=== PATIENT | male | born 1935 | race Caucasian/White ===

== ENCOUNTER 2019-06-09 20:48 | Inpatient (IN) | payer OTHER ==
[~2019-06-09] VITALS: Ht 172.7 cm; Wt 87.7 kg
--- NOTE | 2019-06-09 21:00 | NUR ---
EKG IN PROGRESS IN TRIAGE BY ERT SANTOS
[2019-06-09 22:16] LABS: BASOPHIL % 0.3 % (0-2); PLATELET COUNT 220 x10^3mcL (130-400); RED CELL DISTRIBUTION WIDTH 15.1 % (11.5-14.5)
[2019-06-09 22:22] LABS: CALCIUM 9.1 mg/dL (8.5-10.1); CHLORIDE SERUM 105 mmol/L (98-107); GLUCOSE SERUM 133 mg/dL (74-106); POTASSIUM SERUM 3.9 mmol/L (3.5-5.1); SODIUM SERUM 143 mmol/L (136-145)
[2019-06-09 22:27] LABS: ALBUMIN 3.5 g/dL (3.4-5.0); ALKALINE PHOSPHATASE 96 U/L (46-116); ALT/SGPT 29 U/L (16-63); AST/SGOT 15 U/L (15-37); BILIRUBIN TOTAL 0.62 mg/dL (0.20-1.00); TOTAL PROTEIN, SERUM 7.5 g/dL (6.4-8.2)
[2019-06-09 22:40] LABS: UA SPECIFIC GRAVITY 1.025 (1.005-1.035); microscopic required? YES; urine erythrocyte NEGATIVE (NEGATIVE)
--- NOTE | 2019-06-09 23:37 | NUR ---
GAVE REPORT TO BERNICE AT [id number] ON TELE FLOOR
--- NOTE | 2019-06-10 00:08 | NUR ---
PT RECEIVED FROM ED VIA GURNEY ACCOMPANIED BY NURSE AND TECH. PT A/O X4, ABLE TO MAKE NEEDS KNOWN. TELE #26, AFIB, PT DENIES ANY CP/PRESSURE. PULSES PALPABLE, NO EDEMA PRESENT. BREATHING IS EVEN AND UNLABORED ON RA, PT DENIES SOB, NO RESP DISTRESS NOTED, NONPRODUCTIVE COUGH. ABD SOFT AND ROUND, SDENIES N/V. VOIDS FREELY, BRP. AMBULATORY WITH STEADY GAIT. SKIN IS WARM AND DRY, INTACT. PT DENIES HAVING ANY PAIN AT THIS TIME. LEVAQUIN IV ONGOING TO RFA, SITE WNL. ORIENTED PT TO ROOM AND CALL LIGHT. NO ACUTE DISTRESS NOTED. BED IN LOWEST SETTING, SIDE RAILS UP X2, CALLL IGHT WITHIN REACH. WILL CONT TO MONITOR.
--- NOTE | 2019-06-10 00:10 | NUR ---
PT WAS RECEIVED BY PRIMARY NURSE BERNICE FROM ED. PT SEEN LYING IN BED, AAOX4. CAME IN DUE TO COUGH X1 WEEK. AAOX4. DENIES HEADACHE/DIZZINESS. ABLE TO FOLLOW COMMANDS. NO SOB NOTED, MILD CRACKLES NOTED ON AUSCULTATION. O2 SAT=98%, RA. STATED THAT HE HAS NON-PRODUCTIVE COUGH. DENIES CHEST PAIN/PRESSURE, AFIB ON THE MONITOR, HR AT 89. DENIES ABDOMINAL DISCOMFORT. VOIDS. IV SITE PATENT AND INTACT, RECEIVED PT FROM ED W/ LEVAQUIN ONGOING. PT STATED THAT HE HAS PAIN ON THE LEFT SIDE OF THE FACE NEAR THE EAR AREA, WORSE WHEN SWALLOWING, EATING AND OPENING HIS MOUTH. SIDE RAILS UPX2. CALL LIGHT ON REACH. PRIMARY NURSE BERNICE AT BEDSIDE FOR CONTINUITY OF CARE
[2019-06-10 00:24] VITALS: BP 162/91
[2019-06-10 00:27] VITALS: Ht 172.7 cm; Wt 87.7 kg
--- NOTE | 2019-06-10 01:44 | NUR ---
RECEIVED CALL FROM [employer], PER TECH, PT HAD SIX SECOND RUN OF VTACH. PT ASSESSED AND IS ASYMPTOMATIC. PT DENIES HAVING ANY CP/SOB. VSS: 98.5, 96% ON RA, 160/86 (112), HR-96, RR-20. NO ACUTE DISTRESS NOTED. DR BERMEO CALLED AND MADE AWARE, NO NEW ORDERS RECEIVED.
[2019-06-10 01:45] VITALS: BP 160/86
--- NOTE | 2019-06-10 04:50 | NUR ---
PT SLEPT AT INTERVALS THROUGHOUT THE EVENING. BREATHING IS EVEN AND UNLABORED, NO RESP DISTRESS NOTED. PT DENIES HAVING PAIN PAIN AT THIS TIME. IV TO RFA, INTACT. NO ACUTE CHANGES ENCOUNTERED DURING SHIFT. ALL NEEDS MET AND ANTICIPATED. CALL LIGHT WITHIN REACH. WILL ENDORSE CARE TO AM NURSE.
[2019-06-10 05:44] VITALS: BP 168/71
[2019-06-10 06:40] LABS: BASOPHIL % 0.2 % (0-2); PLATELET COUNT 207 x10^3mcL (130-400); RED CELL DISTRIBUTION WIDTH 14.5 % (11.5-14.5)
--- NOTE | 2019-06-10 06:47 | NUR ---
PT C/O 10/10 ABD PAIN, PRN MORPHINE GIVEN ORDERED. PT AND PT'S SPOUSE REQUESTING TO SPEAK WITH PHYSICIAN, DR CLAY CALLED AND MADE AWARE. PER DR CLAY, WILL NOTIFY PT'S RESIDENT.
[2019-06-10 07:03] LABS: CALCIUM 8.6 mg/dL (8.5-10.1); CARBON DIOXIDE 24.9 mmol/L (21-32); CHLORIDE SERUM 104 mmol/L (98-107); CREATININE SERUM 0.9 mg/dL (0.7-1.3); GLUCOSE SERUM 126 mg/dL (74-106); MAGNESIUM 1.5 mg/dL (1.8-2.4); PHOSPHOROUS 2.5 mg/dL (2.5-4.9); POTASSIUM SERUM 3.6 mmol/L (3.5-5.1); SODIUM SERUM 140 mmol/L (136-145); TRIGLYCERIDES 42 mg/dL (<150)
[2019-06-10 07:10] LABS: CHOLESTEROL 118 mg/dL (<200); CHOLESTEROL/HDL RATIO 1.9; HDL CHOLESTEROL 61 mg/dL (40-60)
--- NOTE | 2019-06-10 07:15 | NUR ---
PT IS AAOX4. TELE [address] READING AFIB. HR 101. PT DENIES C/P, PRESSURE, AND PALPITATIONS. BILATERAL UPPER LOBE FINE CRACKLES, BILATERAL LOWER LOBES DIMINISHED. ON R/A. IV CATH TO RFA, N/S LOCKED. SITE WNL. NO S/S OF INFECTION OR INFILTRATION. PT DENIES PAIN AT THIS TIME. CALL LIGHT WITHIN REACH. BED IN LOWEST POSITION. SIDE RAILS UP X2.
[2019-06-10 08:34] VITALS: BP 114/76
--- NOTE | 2019-06-10 08:55 | NUR ---
DR. MOSQUERA AND MEDICAL TEAM MET WITH PT AND DISCUSSED POC. PT WILL HAVE FAMILY MEMBER BRING HOME MEDS TO HOSPITAL, PT HAS C/O OF PAIN TO L JAW, NEAR EAR, WHEN HE OPENS HIS MOUTH. PT WILL CONTINUE ANTIOBIOTIC TX AND LABS WILL BE EVALUATED. NO DISCUSSION REGARDING TIME OF STAY. PT AGREED WITH POC.
--- NOTE | 2019-06-10 09:05 | NUR ---
NURSING SWALLOW EVAL PERFORMED ON PT. PT IS ABLE TO TAKE SMALL BITES OF APPLE SAUCE AND SMALL SIPS OF WATER WITHOUT COUGH OR RETAINING IN MOUTH. SCHEDULE MEDS GIVEN CRUSHED WITH APPLE SAUCE. B/P 138/78 (98), HR 65. CALL LIGHT WITHIN REACH.
--- NOTE | 2019-06-10 10:32 | NUR ---
FLU VACCINE GIVEN TO L DELTOID, SITE COVERED WITH BANDAID. PNEUMONIA VACCINE GIVEN TO R DELTOID, SITE COVERED WITH BANDAID. MAGNESIUM 2GM IVPB GIVEN FOR MAG LEVEL =1.5. PT DENIES PAIN AT THIS TIME. CALL LIGHT WITHIN REACH.
[2019-06-10] MEDS ORDERED: FLONS (10:53)
[2019-06-10] MEDS ORDERED: XARELTO20 M1 PO (10:54)
[2019-06-10] MEDS ORDERED: JANUVIA100 M1 PO (10:55)
[2019-06-10] MEDS ORDERED: METHOTREXATE2.5 M2 PO (10:58)
[2019-06-10] MEDS ORDERED: ADV250/50 INH (11:01)
[2019-06-10] MEDS ORDERED: LIPI20 PO (11:02)
[2019-06-10] MEDS ORDERED: PREDNISONE2.5 MG PO (11:05)
[2019-06-10] MEDS ORDERED: NATURE'S BLEND F1 MG PO (11:06)
[2019-06-10] MEDS ORDERED: GLU850 PO (11:07)
[2019-06-10] MEDS ORDERED: VERAPAMIL HCL180 M1 PO (11:07)
--- NOTE | 2019-06-10 11:53 | NUR ---
BLOOD SUGAR 102, NO INSULIN INDICATED PER RISS. PT RECEIVED DIABETIC TEACHING FROM BRAD CUEVAS AT THIS TIME. CALL LIGHT WITHIN REACH.
[2019-06-10 13:22] VITALS: BP 116/71
--- NOTE | 2019-06-10 13:22 | NUR ---
DR. ARENAS IS MEETING WITH PT AT THIS TIME.
--- NOTE | 2019-06-10 15:34 | NUR ---
PT SLEEPING BUT EASILY AROUSABLE TO VERBAL STIMULI. RESP EVEN AND UNLABORED. NO DISTRESS NOTED. CALL LIGHT WITHIN REACH.
[2019-06-10 17:05] VITALS: BP 110/68
--- NOTE | 2019-06-10 17:31 | NUR ---
BLOOD SUGAR 154, 3 UNITS INSULIN GIVEN PER RISS. TYLENOL 650MG PO GIVEN FOR L JAW PAIN 4/O. EXTRA FLUIDS GIVEN. CALL LIGHT WITHIN REACH.
--- NOTE | 2019-06-10 18:33 | NUR ---
PT IS AAOX4. RESP EVEN AND UNLABORED. ON R/A. NO COUGH. TELE [address] READING AFIB. IV CATH TO RFA N/S LOCKED. SITE WNL. NO S/S OF INFECTION OR INFILTRATION NOTED. PT HAD SMALL SKIN TEAR TO R HAND. AREA CLEANSED WITH N/S, PATTED DRY AND BANDAID APPLIED. PT DENIES PAIN AT THIS TIME. CALL LIGTH WITHIN REACH. BED IN LOWEST POSTION. WILL ENDORSE ALL CARE TO NOC BRAD.
--- NOTE | 2019-06-10 19:25 | NUR ---
PT RECEIVED A/O X4, ABLE TO MAKE NEEDS KNOWN. TELE #26, AFIB, PT DENIES ANY CP/PRESSURE. PULSES PALPABLE, NO EDEMA PRESENT. BREATHING IS EVEN AND UNLABORED ON RA, PT DENIES SOB, NO RESP DISTRESS NOTED. ABD SOFT AND ROUND, DENIES N/V. VOIDS FREELY, BRP. AMBULATORY WITH STEADY GAIT. SKIN IS WARM AND DRY, INTACT. PT DENIES HAVING ANY PAIN AT THIS TIME. SL TO RFA, PATENT AND INTACT, SITE WNL. GRANDSON AT BEDSIDE. NO ACUTE DISTRESS NOTED. BED IN LOWEST SETTING, SIDE RAILS UP X2, CALLL IGHT WITHIN REACH. WILL CONT TO MONITOR.
[2019-06-11 05:54] VITALS: BP 136/82
--- NOTE | 2019-06-11 06:32 | NUR ---
PT SLEPT WELL THROUGHOUT THE EVENING. BREATHING IS EVEN AND UNLABORED, NO RESP DISTRESS NOTED. PT C/O MILD LEFT-SIDED JAW PAIN, PRN TYLENOL GIVEN ORDERED. PT ALSO C/O COUGH, PRN ROBITUSSING GIVEN ORDERED. SL TO RFA, PATENT AND INTACT, SITE WNL. NO ACUTE CHANGES ENCOUNTERED DURING SHIFT. ALL NEEDS MET AND ANTICIPATED. PT COMPLIANT WITH NURSING CARE. CALL LIGHT WITHIN REACH. WILL ENDORSE CARE TO AM NURSE.
[2019-06-11 06:46] LABS: BASOPHIL % 0.4 % (0-2); PLATELET COUNT 195 x10^3mcL (130-400); RED CELL DISTRIBUTION WIDTH 14.5 % (11.5-14.5)
[2019-06-11 07:07] LABS: CALCIUM 8.8 mg/dL (8.5-10.1); CARBON DIOXIDE 25.3 mmol/L (21-32); CHLORIDE SERUM 104 mmol/L (98-107); CREATININE SERUM 0.9 mg/dL (0.7-1.3); GLUCOSE SERUM 95 mg/dL (74-106); MAGNESIUM 1.9 mg/dL (1.8-2.4); POTASSIUM SERUM 3.8 mmol/L (3.5-5.1); SODIUM SERUM 139 mmol/L (136-145)
--- NOTE | 2019-06-11 07:20 | NUR ---
RECEIVED PT FROM MEAT APPRENTICE. PT AWAKE, ALERT. A/OX4. PT ON ROOM AIR WITH NO RESP DISTRESS NOTED. PT HAS PERIODIC PRODUCTIVE COUGHING. DIMINISHED LUNG SOUNDS NOTED. PT ON TELE 26, DENIES CHEST PAIN. PERIPHERAL PULSES PALPABLE, NO EDEMA NOTED. IV ACCESS RFA, CDI. SALINE LOCKED. PT DENIES PAIN AT THIS TIME. PT AMBULATORY. SAFETY MEASURES IN PLACE, BED LOW AND LOCKED. CALL LIGHT WITHIN REACH.
[2019-06-11 08:27] VITALS: BP 135/54
--- NOTE | 2019-06-11 08:35 | NUR ---
DUE MEDICATIONS ADMINSTERED. PT TOLERATED WELL. PT SITTING UP AT BEDSIDE WITH NO ACUTE DISTRESS OR DISCOMFORT NOTED AT THIS TIME. PT REPORTS RELEIF FROM PREVIOUS PAIN TO LEFT JAWLINE AFTER ADMINISTRATION OF TYLENOL. WILL MONITOR.
[2019-06-11 12:45] VITALS: BP 131/66
--- NOTE | 2019-06-11 13:06 | NUR ---
PT COMPLAINING OF PAIN TO LEFT JAW 3/10, MUCH IMPROVED. ASKING FOR TYLENOL AND COUGH SYRUP FOR COUGH. MEDS ADMINISTERED ORDERED PRN(SEE EMAR). WILL CONTINUE TO MONITOR.
--- NOTE | 2019-06-11 14:09 | NUR ---
PT REPORTS RELIEF AFTER ADMINISTRATION OF ROBITUSSIN AND TYLENOL. NO ACUTE DISTRESS OR DISCOMFORT NOTED AT THIS TIME. FAMILY AT BEDSIDE. SAFETY MAINTAINED.
[2019-06-11 16:28] VITALS: BP 127/72
--- NOTE | 2019-06-11 16:28 | NUR ---
PT TRANSFERRED TO MED SURG. TELEMETRY BOX REMOVED AND RETURNED TO [employer].
--- NOTE | 2019-06-11 18:47 | NUR ---
PT STABLE AT THIS TIME. ALL NEEDS TENDED TO THROUGHOUT SHIFT. WILL CONTINUE TO MONITOR AND ENDORSE CARE TO AUTOMOBILE TESTER.
--- NOTE | 2019-06-11 19:00 | NUR ---
RECEIVED REPORT FROM KAITLYNN SALINAS. PT AAOX4 AND DENIES HEADACHE OR DIZZINESS AT THIS TIME. PT IS MED-SURG AND DENIES CHEST PAIN OR PRESSURE AT THIS TIME. PT PULSES PALPABLE AND CAP REFILL <3 SEC. PT LUNG SOUNDS ARE DIMINISHED BLL ON RA. PT HAS NON-PRODUCTIVE COUGH. PT DENIES SOB OR RESPIRATORY DISTRESS AT THIS TIME. PT ABD IS SOFT AND NONDISTENDED. PT DENIES N/V/D AT THIS TIME. PT VOIDS FREELY WITH BRP. PT UA(+) FOR [place], WBC, HAL. PT AMBULATORY. PT SKIN WARM, DRY, INTACT. PT RFA IV PATENT AND INTACT. CALL LIGHT WITHIN REACH. BED IN LOWEST POSITION. SIDE RAILS X2 UP. WILL CONTINUE TO MONITOR.
[2019-06-11 20:25] VITALS: BP 140/66
--- NOTE | 2019-06-12 00:44 | NUR ---
PT SLEEPING AT THIS TIME. PT BREATHING EVEN AND UNLABORED. PERIODIC COUGHING NOTED. NO ACUTE DISTRESS NOTED. IVF INFUSING WELL. CALL LIGHT WITHIN REACH. BED IN LOWEST POSITION. SIDE RAILS X2 UP. WILL CONTINUE TO MONITOR.
--- NOTE | 2019-06-12 02:17 | NUR ---
PT SLEEPING. PT BREATHING EVEN AND UNLABORED. PT IV INTACT AND SALINE-LOCKED AT THIS TIME. NO ACUTE DISTRESS NOTED. CALL LIGHT WITHIN REACH. BED IN LOWEST POSITION. SIDE RAILS X2 UP. WILL CONTINUE TO MONITOR.
--- NOTE | 2019-06-12 02:56 | NUR ---
PT SLEEPING. PT BREATHING EVEN AND UNLABORED. NO ACUTE DISTRESS NOTED. IV SITE INTACT AND SALINE-LOCKED. CALL LIGHT WITHIN REACH. BED IN LOWEST POSITION. SIDE RAILS X2 UP. WILL CONTINUE TO MONITOR.
--- NOTE | 2019-06-12 04:19 | NUR ---
PT AWAKE AND WENT TO BATHROOM. PT DENIES ANY PAIN OR DISCOMFORT AT THIS TIME. NO ACUTE DISTRESS NOTED. CALL LIGHT WITHIN REACH. BED IN LOWEST POSITION. SIDE RAILS X2 UP. WILL CONTINUE TO MONITOR.
--- NOTE | 2019-06-12 05:00 | NUR ---
PT SLEPT FOR MOST OF THE NIGHT. PT ONLY WOKE UP WHEN HE HAD TO USE THE RESTROOM. PT COMPLIED WITH NURSING CARE THROUGHOUT THE SHIFT. NO ACUTE DISTRESS NOTED THROUGHOUT THE SHIFT. SAFETY AND COMFORT MEASURES MAINTAINED DURING THE SHIFT. ALL NEEDS AND CONCERNS ADDRESSED. CALL LIGHT WITHIN REACH. BED IN LOWEST POSITION. SIDE RAILS X2 UP. WILL CONTINUE TO MONITOR. WILL ENDORSE TO DAY SHIFT NURSE.
[2019-06-12 05:25] VITALS: BP 113/70
[2019-06-12 06:00] LABS: BASOPHIL % 0.9 % (0-2); PLATELET COUNT 204 x10^3mcL (130-400); RED CELL DISTRIBUTION WIDTH 14.2 % (11.5-14.5)
[2019-06-12 06:40] LABS: CALCIUM 8.8 mg/dL (8.5-10.1); CARBON DIOXIDE 26.8 mmol/L (21-32); CHLORIDE SERUM 105 mmol/L (98-107); GLUCOSE SERUM 109 mg/dL (74-106); MAGNESIUM 1.8 mg/dL (1.8-2.4); POTASSIUM SERUM 3.7 mmol/L (3.5-5.1); SODIUM SERUM 139 mmol/L (136-145)
--- NOTE | 2019-06-12 07:25 | NUR ---
RECEIVED PT. IN BED A/A/O X3. NO SOB, NO N/V NOTED. PT. DENIES ANY PAIN AT THIS TIME. IV SITE NOTED TO R FA. BED IN LOW POS., CALL LIGHT WITHIN REACH. SIDE RAILS UP X3.
[2019-06-12 08:45] VITALS: BP 115/78
[2019-06-12] MEDS ORDERED: ROBDML PO (09:49)
[2019-06-12] MEDS ORDERED: LEVAQUIN750 MG PO (09:53)
[2019-06-12] MEDS ORDERED: COMBIVENT RESPI1 SP1 IH (09:55)
--- NOTE | 2019-06-12 13:30 | NUR ---
D/C HOME INSTRUCTIONS GIVEN TO PT. WHO VERBALIZED UNDERSTANDING OF INSTRUCTIONS. IV H/L TO R FA REMOVED. PRESCRIPTIONS GIVEN.
--- NOTE | 2019-06-12 14:22 | NUR ---
PT. IS BEING DISCHARGED IN STABLE CONDITION VIA WHEELCHAIR. ALL BELONGINGS SENT HOME WITH PT. UPON DISCHARGE.
[2019-06-12 14:44] VITALS: BP 115/78
== END 2019-06-12 14:22 | disposition home or self-care (01) | DRG 871 ==
LOC: ED 20:48 → DU 23:09 → MU 06-11 16:24
PROVIDERS: Emergency Medicine; ADMIT Family Medicine
DX: A41.9 Sepsis, unspecified organism (principal); J18.9 Pneumonia, unspecified organism; N39.0 Urinary tract infection, site not specified; J98.11 Atelectasis; E11.9 Type 2 diabetes mellitus without complications; I10 Essential (primary) hypertension; M06.9 Rheumatoid arthritis, unspecified; E83.42 Hypomagnesemia; E78.5 Hyperlipidemia, unspecified; I48.91 Unspecified atrial fibrillation; J45.909 Unspecified asthma, uncomplicated; Z68.29 Body mass index [BMI] 29.0-29.9, adult; Z87.891 Personal history of nicotine dependence; Z79.01 Long term (current) use of anticoagulants; Z79.84 Long term (current) use of oral hypoglycemic drugs
CPT/HCPCS: 82962; 83880; 87804; 90658; 90732; 94150; 97116-GP; G0378; J1956; J3475; J7030; J7040; J7512; Q0092